=== PATIENT | female | born 1945 | race Caucasian/White ===

== ENCOUNTER 2018-04-02 11:08 | Emergency (ER) | payer MEDICARE, BC, SELFPAY ==
[2018-04-02 11:19] VITALS: BP 123/73; PULSE 71; RESP 20; TEMP 36.7; O2SAT 97
--- NOTE | 2018-04-02 21:25 | W.ED.GENAD ---
Discharge Plan Disposition Patient Disposition: HOME Condition: Good Discharge Details Chief Complaint: Laceration Clinical Impression: Laceration of finger of right hand Primary Care Provider: [facility] Provider: Tanmay Zhang Home Meds and New Rx's Prescriptions: No Action diclofenac sodium 50 mg Tablet,Delayed Release (Dr/Ec) 50 mg PO BID RF: 0 duloxetine [Cymbalta] 20 mg Capsule,Delayed Release(Dr/Ec) 20 mg PO DAILY RF: 0 pregabalin [Lyrica] 50 mg Capsule 50 mg PO BID RF: 0 Discharge Instructions Instructions: Care For Your Stitches (ED), Finger Laceration (ED) Additional Instructions: Please keep the area dry for the next 24 hours. After this you can wash it gently with warm soapy water. If you notice any redness, swelling, pain, fever, drainage from the wound please return immediately for reevaluation. Please return to have the sutures removed in the next 10-14 days. If you notice any worsening of your symptoms, or any new symptoms such as vomiting, diarrhea, fever, chills, shortness of breath, chest pain, numbness, weakness, or fainting , please return immediately to the emergency department for reevaluation. Please follow up with your primary care provider as soon as possible for reassessment and reevaluation. As always, it was a pleasure participating in your medical care today. Discharge Data Discharge Date/Time-TO BE ENTERED AT DEPARTURE: 04/02/18 11:57 Medical Decision Making MDM Narrative Medical decision making narrative: This is a very pleasant 72-year-old female who is immunizations are up-to-date who presents with a small laceration on her right index finger and a small abrasion on her right elbow. It occurred after falling while holding her 2 dogs. She did not hit any other component of her body. She has no other signs of trauma. No pain on movement for any of these locations. Normal movement normal sensation normal strength for all components of the fingers elbow and upper extremities. The laceration was sutured, the patient tolerated this well. Good wound edge reapproximation. We discussed red flags which to return, as well as suture care instructions and the patient understands. I have extensively reviewed the treatment plan and discharge instructions with the patient. I have addressed all patient concerns at this time. The patient was made aware of what symptoms to monitor for that would warrant a return to the emergency department. Discussed the plan with the patient, they demonstrate verbal understanding and agreement with our assessment and plan at this time. Procedure: Suture Patient was positioned appropriately, 3cc lidocaine without epinephrine> was used as a local anesthetic. A small amount of tissue at the proximal component of the skin was cut off to reveal healthy tissue appropriate for suturing. Copious amounts of normal saline used for irrigation followed by vigorous scrubbing with chlorhexidine scrub.. Patient was sterile draped with wound exposed. 4 simple interrupted sutures were placed utilizing 4-0 nylon were placed with good approximation. Wound dressed with sterile gauze. Estimated Blood Loss: 0 mL The patient tolerated the procedure well and there were no complications. HPI - General Adult General Date/Time Provider Initiated Documentation: 04/02/18 11:26. HPI Narrative: This is a pleasant 72-year-old female whose tetanus shot was updated last year was no significant medical problems except for mild arthritis it does take diclofenac. She presents today for follow-up. The patient was walking and holding her 2 dogs and [place] when she [place]pped because of the dogs, and fell and scraped her right elbow, and got a small cut on her pinky finger on the right-hand side. She is right-hand dominant. She denies any numbness tingling or weakness. She denies any pain in her hand or elbow. She has normal movements with no pain with movement. Symptoms are only worsened with palpation of the laceration. She is not on any blood thinners. She denies hitting her head or any other trauma. She has no other complaints at this time. She denies any recent pertinent surgeries, pertinent family history, or IV or illicit drug use. Related Data Home Medications Medication Instructions Recorded Confirmed diclofenac sodium 50 mg PO BID 04/02/18 04/02/18 duloxetine [Cymbalta] 20 mg PO DAILY 04/02/18 04/02/18 pregabalin [Lyrica] 50 mg PO BID 04/02/18 04/02/18 Allergies Allergy/AdvReac Type Severity Reaction Status Date / Time No Known Allergies Allergy Unverified 04/02/18 11:23 General Stated Complaint: Laceration SOPHIA: 4 Review of Systems Review of Systems 10 point review of systems was performed, pertinent positives and negatives are noted in the history of present illness. Exam Narrative Exam Narrative: 1.Const: Well-nourished, Well-developed, appearing stated age 2.Eyes: PERRL, no conjunctival injection, and symmetrical lids. 3.ENT: Atraumatic external nose and ears. Moist MM. Neck: Symmetric, trachea midline, No thyromegaly. 4.CVS: +S1/S2, No murmurs or gallops. Peripheral pulses 2+ and equal in all extremities. Brisk capillary refill in all extremities. 5.RESP: Unlabored respiratory effort. Clear to auscultation bilaterally. No wheezes rales or rhonchi 6.GI: Soft, Nontender/Nondistended, No hepatosplenomegaly. No guarding or rebound. 7.MSK: Normocephalic/Atraumatic, Extremities w/o deformity or ttp No cyanosis or clubbing, Normal movement of all extremities. Normal movement of all extremities including all fingers, wrists, and elbows bilaterally. 8.Skin: Warm, Dry. Small linear 2 cm laceration over the MCP joint and the fifth digit. No evidence of tendon involvement. Good flexion extension of the pinky at all joints, and for all components of movement. Normal sensation. No active bleeding. Some air is noted in the area. Laceration is linear. Small abrasion over the right elbow. No active bleeding. 9.Neuro: vertica architect II-XII grossly intact. Sensation grossly intact, no focal neurologic deficits. 10.Psych: (AAO) x3. Appropriate mood and affect Course Vital Signs Temperature 36.7 C 04/02/18 11:19 Pulse 71 04/02/18 11:19 Respiratory Rate 20 04/02/18 11:19 Blood Pressure 123/73 04/02/18 11:19 Pulse Oximetry 97 04/02/18 11:19 Temperature 36.7 C 04/02/18 11:19 Pulse 71 04/02/18 11:19 Respiratory Rate 20 04/02/18 11:19 Blood Pressure 123/73 04/02/18 11:19 Pulse Oximetry 97 04/02/18 11:19
== END 2018-04-02 11:57 | disposition home or self-care (01) ==
LOC: ER 12:04
PROVIDERS: Emergency Provider Student in an Organized Health Care Education/Training Program
DX: S61.210A Laceration without foreign body of right index finger without damage to nail, initial encounter; S50.311A Abrasion of right elbow, initial encounter; W18.39XA Other fall on same level, initial encounter; Y93.K1 Activity, walking an animal
CPT/HCPCS: 12001